=== PATIENT | male | born 1990 | race Caucasian/White ===

== ENCOUNTER 2021-09-30 18:41 | Emergency (ER) | payer BC ==
[~2021-09-30] VITALS: Ht 180.3 cm; Wt 95.5 kg
[2021-09-30] MEDS ORDERED: PROTONIX TR40 M1 PO (19:35)
[2021-09-30] MEDS ORDERED: SINGULAIR PO (19:35)
[2021-09-30] MEDS ORDERED: ZOLOFT25 M1 PO (19:36)
[2021-09-30] MEDS ORDERED: PROAIR HFA0.09 MG/AC IH (19:36)
[2021-09-30 20:06] LABS: URINE APPEARANCE CLEAR; URINE COLOR YELLOW
[2021-09-30 20:07] LABS: URINE GLUCOSE NEGATIVE (NEGATIVE); URINE KETONE 1+ (NEGATIVE); URINE PROTEIN(semi-quant) TRACE mg/dL (NEGATIVE)
[2021-09-30 20:08] LABS: URINE BLOOD 50 ery/uL (NEGATIVE); URINE NITRATE NEGATIVE (NEGATIVE); URINE UROBILINOGEN NORMAL (NORMAL)
[2021-09-30 20:09] LABS: URINE BILIRUBIN NEGATIVE (NEGATIVE); URINE LEUKOCYTE ESTERASE NEGATIVE (NEGATIVE); URINE WBC 0-1 /hpf (0-3)
[2021-09-30 20:37] LABS: BASO # 0.02 K/mm3 (0.02-0.10); EOS # 0.03 K/mm3 (0.04-0.40); EOS % 0.2 % (0.0-4.0); HEMATOCRIT 44.1 % (42.0-52.0); HEMOGLOBIN 14.8 g/dL (13.5-18.0); LYMPH# 1.39 K/mm3 (1.50-4.00); MEAN CELL VOLUME 92 fl (78-100); MEAN CORPUSCULAR HEMOGLOBIN 31 pg (27-31); MEAN CORPUSCULAR HGB CONC 34 g/dL (33-37); MEAN PLATELET VOLUME 10.4 fl (7.4-10.4); MONO # 1.15 K/mm3 (0.20-0.80); NEU # 15.04 K/mm3 (1.40-6.50); PLATELET COUNT 234 K/mm3 (130-400); RED BLOOD COUNT 4.82 M/mm3 (4.20-5.60); WHITE BLOOD COUNT 17.7 K/mm3 (4.8-10.8)
[2021-09-30 20:44] LABS: ALBUMIN 4.3 g/dL (3.5-5.0); POTASSIUM 3.9 mmol/L (3.5-5.1)
[2021-09-30 20:45] LABS: CALCIUM 10.3 mg/dL (8.3-10.5)
[2021-09-30 20:47] LABS: TOTAL PROTEIN 7.9 g/dL (6.4-8.3)
[2021-09-30 20:48] LABS: TOTAL BILIRUBIN 0.7 mg/dL (0.2-1.2)
[2021-09-30] MEDS ORDERED: CLEOCIN HCL300 MG PO (21:25)
[2021-09-30] MEDS ORDERED: PANTOPRAZOLE SO40 MG PO (21:25)
[2021-09-30 21:33] VITALS: BP 123/58
== END 2021-09-30 21:33 | disposition home or self-care (01) ==
LOC: ED 18:41
PROVIDERS: Physician Assistant
DX: K04.7 Periapical abscess without sinus (principal); K21.9 Gastro-esophageal reflux disease without esophagitis; F17.210 Nicotine dependence, cigarettes, uncomplicated; Z88.0 Allergy status to penicillin; Z79.899 Other long term (current) drug therapy
CPT/HCPCS: J1885

== ENCOUNTER 2024-11-02 00:26 | Emergency (ER) | payer BC ==
[~2024-11-02 00:26] MED LIST: CLEOCIN HCL300 MG PO; PANTOPRAZOLE SO40 MG PO; PROAIR HFA0.09 MG/AC IH; PROTONIX TR40 M1 PO; SINGULAIR PO; ZOLOFT25 M1 PO
[2024-11-02] MEDS ORDERED: Pregabalin 150 MG CAP PO ONE (01:15)
[2024-11-02] MEDS ORDERED: PERCOCET 325 MG1 TA2 PO (02:10)
[2024-11-02] MEDS ORDERED: LYRICA 150MG C150 MG PO (02:10)
[2024-11-02] MEDS ORDERED: ZANAFLEX4 M1 PO (02:10)
[2024-11-02] MEDS ORDERED: tiZANidine 4 MG TABLET PO ONE (02:15)
[2024-11-02] MEDS ORDERED: Home Ondansetron ODT 4 MG #2 ODT/PACK PO ONE (02:15)
[2024-11-02] MEDS ORDERED: Home oxyCODONE/Acetaminophen 5/325 MG #4 TAB/PACK PO ONE (02:15)
[2024-11-02 02:25] VITALS: BP 155/98
== END 2024-11-02 02:25 | disposition home or self-care (01) ==
LOC: ED 00:26
DX: M50.322 Other cervical disc degeneration at C5-C6 level (principal); F17.200 Nicotine dependence, unspecified, uncomplicated